=== PATIENT | female | born 1930 | race Hispanic/Latino ===

== ENCOUNTER → 2018-06-30 | Outpatient (CLI) | payer MEDICARE ==
--- NOTE | 2018-06-30 11:46 | Diagnostic Imaging Report ---
PROCEDURE: X-RAY UPPER GI SERIES WITH AIR CONTRAST TECHNIQUE: A variety and thick and thin barium liquid was swallowed as well as air crystals. Multiple fluoroscopic and spot radiographs obtained. OPERATORS: Merle Mercado MD COMPARISON: None. INDICATIONS: GERD FINDINGS: SWALLOW: No gross abnormality. No evidence of aspiration. ESOPHAGUS: Motility: Some primary and secondary contractions, several tertiary contractions also noted. Mucosa: Unremarkable. Distensibility: Normal. GASTROESOPHAGEAL JUNCTION: Moderate hiatal hernia. GASTROESOPHAGEAL REFLUX: Severe spontaneous gastroesophageal reflux above the level of the aortic arch. STOMACH: Normally distensible and demonstrates normal contours and mucosal pattern. SMALL BOWEL: Bulb and sweep are normal. Duodenal-jejunal junction is in the normal expected position. Visualized proximal small bowel is unremarkable. IMPRESSION: Moderate hiatal hernia with severe spontaneous gastroesophageal reflux above the level of the aortic arch. Several tertiary contractions in the esophagus, a non-specific finding, but could represent underlying motility disorder. Dictated by: MERLE MERCADO M.D. on 06/30/2018 at 11:55 Electronically approved by: MERLE MERCADO M.D. on 06/30/2018 at 11:55
== END ==
LOC: DX 08:15
PROVIDERS: ATTEND Family Medicine
DX: K21.9 Gastro-esophageal reflux disease without esophagitis (principal)
CPT/HCPCS: 74246

== ENCOUNTER 2018-12-10 17:06 | Emergency (ER) | payer MEDICARE ==
[~2018-12-10] VITALS: Ht 160 cm; Wt 73.9 kg
--- OUTSIDE RECORDS SUMMARY | 2018-12-10 17:09 | XMS REPORT ---
Author [facility] Address Unknown Phone Unavailable Care Team Providers Care Sales Representative [employer] Name Role Phone ERICA CALDERON Unavailable Unavailable Problems This patient has no known problems. Allergies, Adverse Reactions, Alerts This patient has no known allergies or adverse reactions. Medications This patient has no known medications. Results Test Description Test Time Test Comments Text Results Atomic Results Result Comments UPPER GI W/AIR CONTR 2018-06-30 11:55:00 [place] [address] Patient Name: AMILCAR EVANS MR #: [id number] : 1930 Age/Sex: 88/F Req #: [id number] [facility] Physician: Ordered by: YUMIKO PINA, ERICA Matthews MD Report #: [id number] Location: DX Room/Bed: Procedure: [id number] DX/UPPER GI W/AIR CONTR Exam Date: Exam Time: REPORT STATUS: Signed PROCEDURE: X-RAY UPPER GI SERIES WITH AIR CONTRAST TECHNIQUE: A variety and thick and thin barium liquid was swallowed as well as air crystals. Multiple fluoroscopic and spot radiographs obtained. OPERATORS: Laurence Mercado MD COMPARISON: None. INDICATIONS: GERD FINDINGS: SWALLOW: No gross abnormality. No evidence of aspiration. ESOPHAGUS: Motility: Some primary and secondary contractions, several tertiary contractions also noted. Mucosa: Unremarkable. Distensibility: Normal. GASTROESOPHAGEAL JUNCTION: Moderate hiatal hernia. GASTROESOPHAGEAL REFLUX: Severe spontaneous gastroesophageal reflux above the level of the aortic arch. STOMACH: Normally distensible and demonstrates normal contours and mucosal pattern. SMALL BOWEL: Bulb and sweep are normal. Duodenal-jejunal junction is in the normal expected position. Visualized proximal small bowel is unremarkable. IMPRESSION: Moderate hiatal hernia with severe spontaneous gastroesophageal reflux above the level of the aortic arch. Several tertiary contractions in the esophagus, a non-specific finding, but could represent underlying motility disorder. Dictated by: LAURENCE MERCADO M.D. on 06/30/2018 at 11:55 Electronically approved by: LAURENCE MERCADO M.D. on 06/30/2018 at 11:55 Dictated By: LAURENCE MERCADO MD [id number] Transcribed By: GORDON on 06/30/18 1155 COPY TO: ERICA CALDERON
[2018-12-10] MEDS ORDERED: KETOROLAC TROMETHAMINE 30 MG/ML VIAL ONE (17:35)
[2018-12-10] MEDS ORDERED: METHYLPREDNISOLONE SOD SUCC 125 MG/2ML VIAL ONE (17:36)
[2018-12-10 18:43] VITALS: BP 156/72
[2018-12-10] MEDS ORDERED: METHYLPREDNISOLONE ACETATE 80 MG/ML VIAL IM ONE (19:00)
[2018-12-10] MEDS ORDERED: KETOROLAC TROMETHAMINE 60 MG/2 ML VIAL IM ONE (19:00)
== END 2018-12-10 18:55 | disposition home or self-care (01) ==
LOC: ER 17:06
DX: M54.12 Radiculopathy, cervical region (principal); I10 Essential (primary) hypertension; E03.9 Hypothyroidism, unspecified; F41.9 Anxiety disorder, unspecified; G89.29 Other chronic pain; M54.9 Dorsalgia, unspecified; Z86.73 Personal history of transient ischemic attack (TIA), and cerebral infarction without residual deficits
CPT/HCPCS: 99282; J1885; J2930

== ENCOUNTER → 2019-04-04 | Day surgery (SDC) | payer MEDICARE ==
[2019-03-30 17:05] LABS: BASOPHILS % 0.5 % (0.0-1.0); EOSINOPHILS # (AUTO) 0.2 (0.0-0.4); EOSINOPHILS % 4.1 % (0.0-6.0); HEMATOCRIT 37.1 % (34.2-44.1); HEMOGLOBIN 12.4 g/dL (12.0-16.0); LYMPHOCYTES # (AUTO) 1.1 (1.0-3.2); LYMPHOCYTES % 18.8 % (18.0-39.1); MEAN CORPUSCULAR HEMOGLOBIN 31.2 pg (28-32); MEAN CORPUSCULAR HGB CONC 33.4 g/dL (31-35); MEAN CORPUSCULAR VOLUME 93.5 fL (81-99); MONOCYTES # (AUTO) 0.6 (0.2-0.8); NEUTROPHILS # (AUTO) 3.9 (2.1-6.9); NEUTROPHILS % 66.3 % (38.7-80.0); PLATELET COUNT 202 x10e3/uL (140-360); RED BLOOD COUNT 3.97 x10e6/uL (3.6-5.1); RED CELL DISTRIBUTION WIDTH 13.2 % (11.7-14.4)
--- NOTE | 2019-03-30 17:06 | Diagnostic Imaging Report ---
EXAMINATION: CHEST 2 VIEWS INDICATION: Pre-operative COMPARISON: None FINDINGS: LINES/TUBES:None LUNGS:The lungs are well-inflated. No focal consolidation or pulmonary edema. Subcentimeter calcified granulomas at both lung bases. PLEURA:No pleural effusion or pneumothorax. MEDIASTINUM:The cardiomediastinal silhouette appears normal in size and shape. Atherosclerotic calcifications of the thoracic aorta. BONES/SOFT TISSUES:No acute osseous injury. ABDOMEN:No free air under the diaphragm. IMPRESSION: No focal pneumonia or pulmonary edema. Signed by: Rachana Reese MD on 03/30/2019 5:03 PM
[2019-03-30 17:16] LABS: ANION GAP 13.5 mmol/L (8-16); BLOOD UREA NITROGEN 20 mg/dL (7-26); BUN/CREATININE RATIO 29 (6-25); CALCIUM 9.3 mg/dL (8.4-10.2); CARBON DIOXIDE 26 mmol/L (22-29); CHLORIDE 105 mmol/L (98-107); EST GLOMERULAR FILTRATION RATE > 60 ML/MIN (60-); GLUCOSE 99 mg/dL (74-118); POTASSIUM 3.5 mmol/L (3.5-5.1); SODIUM 141 mmol/L (136-145)
[~2019-04-04] MED LIST: ACETAMINOPHEN 1000 MG/100 ML 100 ML IV ONE; BACLOFEN10 MG PO; BUPIVACAINE HCL 0.5% INJ 30 ML VIAL INJ ONE; CEFAZOLIN SOD 1 GM/NS 50ML 50 ML IV ONE; CYMBALTA30 MG PO; DEXAMETHASONE SOD PHOS INJ 4 MG/ML VIAL ONE; FENTANYL CITRATE/PF 100MCG/2 ML INJ ONE; HYDRALAZINE HCL 20 MG/ML VIAL ONE; HYDROCHLOROTHIA25 MG PO; LIDOCAINE HCL 2% LOCAL INJ 5 ML SDV VIAL INJ ONE; LYRICA50 MG PO; METOPROLOL SUCC25 MG PO; MONTELUKAST SOD10 MG PO; NEXIUM40 MG PO; NORCO 5-325 TA1 EACH PO; ONDANSETRON HCL INJ 2MG/ML 2ML 2 MG/ML VIAL ONE; OXYBUTYNIN CHLOR5 MG PO; PROPOFOL IV EMULSION 10 MG/ML 20 ML VIAL ONE; SIMVASTATIN20 MG PO; SYNTHROID125 MCG PO
[2019-04-04 09:35] VITALS: BP 148/78
--- NOTE | 2019-04-04 11:47 | Operative Report ---
DATE OF PROCEDURE: 04/04/2019 SURGEON: Luis Baca MD PIPE LINE REPAIRER: Bert Forbes PA-C. PREOPERATIVE DIAGNOSES: Left carpal tunnel syndrome, left cubital tunnel syndrome. POSTOPERATIVE DIAGNOSES: Left carpal tunnel syndrome, left cubital tunnel syndrome. PROCEDURES: Left endoscopic carpal tunnel release, left ulnar nerve decompression. INDICATIONS: The patient is an 88-year-old lady, who has clinic signs and symptoms with severe carpal tunnel syndrome and cubital tunnel syndrome. The findings and options have been discussed both with the patient and her daughter. They would like to proceed with surgical intervention. The risks and benefits were explained. Realistic expectations were stressed. She has long-standing findings on nerve conduction test. Incomplete resolution of all of the symptoms is likely. They state they understand. PROCEDURE IN DETAIL: The patient was brought to the operating room and placed under general anesthetic. Her left upper extremity was prepped and draped in a sterile manner. A preoperative time-out was performed. The extremity was exsanguinated and a proximal tourniquet was inflated to 250 mmHg. She received prophylactic antibiotics in the holding area. Initial attention was directed towards the carpal tunnel. An incision was made over the flexion crease of the left wrist. The palmaris longus was retracted to the radial side of the wound. The flexor retinaculum was elevated and incised with a pair of tenotomy scissors. Dilators were placed and the hook of the hamate was palpated. An elevator was used to tease the tenosynovium off the undersurface of the transverse carpal ligament. The MicroAire endoscope was placed into the carpal tunnel. The undersurface of the transverse carpal ligament was seen without any evidence of soft tissue interposition. The knife was deployed and the ligament was cut from distal to proximal. A full-thickness cut was noted. The proximal retinaculum was incised under direct visualization. The wound was closed with two interrupted nylon stitches. Attention was then directed towards the posteromedial aspect of the left elbow. A curvilinear incision was performed. Blunt dissection was carried down to expose the ulnar nerve. This was encased in fairly dense fibrous tissue. This was released. A Flakita drain was placed around the ulnar nerve. The ulnar nerve was then completely freed up from proximal down into the flexor muscles. This wound was irrigated and closed with subcuticular Vicryl and a running nylon stitch. 7 mL of 0.5% Marcaine was injected around the incision. A sterile bandage and a posterior splint were applied. She was extubated and transported to the recovery room in stable condition. There was no blood loss and all needle and sponge counts were correct. Luis Baca MD DR/ROSITA /[id number]
== END | disposition home or self-care (01) ==
LOC: OR 05:00
PROVIDERS: ATTEND Specialist
DX: G56.02 Carpal tunnel syndrome, left upper limb (principal); G56.22 Lesion of ulnar nerve, left upper limb; M54.12 Radiculopathy, cervical region; Z01.810 Encounter for preprocedural cardiovascular examination; Z01.812 Encounter for preprocedural laboratory examination; Z01.811 Encounter for preprocedural respiratory examination; E03.9 Hypothyroidism, unspecified; I10 Essential (primary) hypertension; E78.00 Pure hypercholesterolemia, unspecified; F32.9 Major depressive disorder, single episode, unspecified; F41.9 Anxiety disorder, unspecified; K21.9 Gastro-esophageal reflux disease without esophagitis
CPT/HCPCS: 29848; 36415; 64718; 71046; 80048; 85025; 93005; J0131; J0360; J0690; J1100; J2001; J2405; J2704; J3010

== ENCOUNTER → 2020-04-27 | Outpatient (CLI) | payer MEDICARE ==
[~2020-04-27] MED LIST changes: -ACETAMINOPHEN 1000 MG/100 ML 100 ML IV ONE; -BUPIVACAINE HCL 0.5% INJ 30 ML VIAL INJ ONE; -CEFAZOLIN SOD 1 GM/NS 50ML 50 ML IV ONE; -DEXAMETHASONE SOD PHOS INJ 4 MG/ML VIAL ONE; -FENTANYL CITRATE/PF 100MCG/2 ML INJ ONE; -HYDRALAZINE HCL 20 MG/ML VIAL ONE; +IOPAMIDOL 370 MG/ML 200 ML INFUS..BTL INJ ONE; -LIDOCAINE HCL 2% LOCAL INJ 5 ML SDV VIAL INJ ONE; -ONDANSETRON HCL INJ 2MG/ML 2ML 2 MG/ML VIAL ONE; -PROPOFOL IV EMULSION 10 MG/ML 20 ML VIAL ONE; +SODIUM CHLORIDE 0.9% 50ML 50 ML ONE
[2020-04-27 14:09] LABS: BLOOD UREA NITROGEN 8 mg/dL (7-26); BUN/CREATININE RATIO 10 (6-25); CREATININE, SERUM 0.78 mg/dL (0.57-1.11); EST GLOMERULAR FILTRATION RATE > 60 ML/MIN (60-)
--- NOTE | 2020-04-27 15:02 | Diagnostic Imaging Report ---
CT of the abdomen and pelvis with contrast TECHNIQUE: CT of the abdomen and pelvis WITH intravenous contrast and WITHOUT oral contrast. Dose modulation, iterative reconstruction, and/or weight-based adjustment of the mA/kV was utilized to reduce the radiation dose to as low as reasonably achievable. IV CONTRAST: 100 mL of Isovue-370 ORAL CONTRAST: None RADIATION DOSE: Total DLP: 575 mGy*cm COMPLICATIONS: None INDICATION: ^[id number] ^[id number] ^CHRONIC DIARRHEA. COMPARISON: None. FINDINGS: LOWER THORAX: Basilar atelectasis and scarring are noted. Probable nodular subpleural left basilar atelectasis is noted on image #13. Underlying 5-6 mm nodule is difficult to exclude. HEPATOBILIARY: No focal hepatic lesions. Gallbladder is unremarkable. No biliary ductal dilatation. SPLEEN: No splenomegaly. PANCREAS: No focal masses or ductal dilatation. ADRENALS: No adrenal nodules. KIDNEYS/URETERS: No hydronephrosis, stones, or masses. Hypodense right interpolar cyst is noted. Ureters are not dilated. PELVIC ORGANS/BLADDER: Urinary bladder is unremarkable. Atrophic fibroid uterus is noted. Hypodense lesions of the bilateral ovaries are noted measuring up to 2 cm on the right. Given size and patients age, almost certainly benign. PERITONEUM/RETROPERITONEUM: No free air or fluid. Small fat-containing umbilical hernia is noted. LYMPH NODES: No lymphadenopathy. VESSELS: Negative for abdominal aortic aneurysm. Scattered atherosclerotic calcifications of the abdominal aorta and its major branches are noted.. GI TRACT: Limited evaluation due to lack of oral contrast. Stomach and colon are decompressed limiting evaluation. Negative for bowel obstruction. Normal appendix is noted. Multiple diverticula are noted of the descending and sigmoid colon. Question mild focal wall thickening of the distal descending colon with surrounding haziness of the fat versus artifact of underdistention. BONES AND SOFT TISSUES: Negative for acute osseous abnormality. 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 Right convex curvature of the lumbar spine is noted. Mild to moderate joint space narrowing of the hip joints is noted. SI joints are patent. Pubic symphysis is not widened. Soft tissues are unremarkable. IMPRESSION: 1. Limited evaluation of the colon due to decompressed state. Multiple diverticula are identified within the descending and sigmoid colon. There is a focal area of questionable wall thickening with slight inflammatory changes in the surrounding peritoneal fat. These findings could relate to mild diverticulitis versus artifact of under distention. No surrounding drainable fluid collection is noted. 2. Basilar atelectasis/scarring. Question focal nodular atelectasis versus 5 to 6 mm left basilar nodule. Guidelines for Management of Incidental Pulmonary Nodules Detected on CT Images: From the Fleischner Society 2017. Radiology 2017;284(1):228-243 Single Solid < 6 mm Patients at low risk for lung cancer: No routine follow-up Patients at high risk for lung cancer: Optional CT at 12 months (consider follow-up if suspicious morphology and/or located in upper lobe, otherwise no follow-up). If stable at 12 months, no further follow-up. 3. Severe degenerative changes of the lumbar spine as described above. Signed by: Fili Willis MD on 04/27/2020 2:59 PM
== END ==
LOC: CT 13:09
PROVIDERS: ATTEND Family Medicine
DX: R19.7 Diarrhea, unspecified (principal)
CPT/HCPCS: 36415; 74177; 82565; 84520; Q9967

== ENCOUNTER → 2020-08-21 | Outpatient (CLI) | payer MEDICARE ==
[~2020-08-21] MED LIST changes: -IOPAMIDOL 370 MG/ML 200 ML INFUS..BTL INJ ONE; -SODIUM CHLORIDE 0.9% 50ML 50 ML ONE
== END ==
LOC: RAD 15:46
PROVIDERS: ATTEND Family Medicine
DX: M25.511 Pain in right shoulder (principal)

== ENCOUNTER → 2021-12-17 | Outpatient (CLI) | payer MEDICARE | LOC: RAD 12:48 | PROVIDERS: ATTEND Family Medicine | DX: R60.9 Edema, unspecified (principal) | CPT/HCPCS: 71046 ==